=== PATIENT | female | born 1955 | race Caucasian/White ===

== ENCOUNTER 2021-01-25 10:09 | Outpatient (REF) | payer MEDICARE, SELFPAY ==
[2021-01-25 14:17] LABS: Anion Gap 14 (12-20); Blood Urea Nitrogen 8 mg/dL (9-16); Carbon Dioxide 25 mmol/L (22-29); Chloride 105 mmol/L (96-108); Estimated Glomerular Filt Rate > 60; Potassium 4.4 mmol/L (3.3-5.1); Sodium 140 mmol/L (135-145)
== END 2021-01-25 10:10 | disposition home or self-care (01) ==
LOC: HO.10HDL 10:09
PROVIDERS: Visit Provider Family Medicine
DX: I10 Essential (primary) hypertension (principal)
CPT/HCPCS: 36415; 80051; 82565; 84520

== ENCOUNTER 2021-10-12 12:38 | Outpatient (REF) | payer MEDICARE, SELFPAY ==
--- NOTE | ~2021-10-12 | XR_ITS ---
EXAMINATION: XR SHOULDER, RIGHT CLINICAL INFORMATION: Right shoulder pain for 6 months. COMPARISON: None TECHNIQUE: Four views of the right shoulder. FINDINGS: No fracture or dislocation. The joint space at the glenohumeral joint is maintained with small marginal osteophytes. Mild hypertrophic degenerative change of the acromioclavicular joint. Subacromial spurring noted. The visualized lung is clear. The visualized ribs are intact. XR/XR shoulder RT min 2V IMPRESSION: Mild degenerative change throughout the right shoulder. Subacromial spurring can predispose to rotator cuff injury.
== END 2021-10-12 12:39 | disposition home or self-care (01) ==
LOC: HO.XRAY 12:38
PROVIDERS: Visit Provider Family Medicine
DX: M25.511 Pain in right shoulder (principal)
CPT/HCPCS: 73030

== ENCOUNTER 2022-01-16 15:09 | Emergency (ER) | payer MEDICARE, SELFPAY ==
--- NOTE | ~2022-01-16 | CT_ITS ---
EXAMINATION: CT HEAD WITHOUT CONTRAST CLINICAL INFORMATION: Headache. COMPARISON: None TECHNIQUE: Contiguous axial imaging was performed from the skull base to vertex without intravenous administration of contrast. This CT examination was performed using dose optimization techniques as appropriate, variously including the following: *Automated exposure control *Adjustment of mA and/or kV according to patient size (this includes techniques or standardized protocols for targeted exams where dose is matched to indication/reason for exam; i.e. extremities or head) *Use of iterative reconstruction technique DLP: 589 mGy-cm FINDINGS: There is no evidence of acute intracranial hemorrhage or territorial infarction. No abnormal mass effect or midline shift is seen. Da Silva to white matter differentiation is well preserved. No extra-axial fluid collections are identified. The ventricles are normal in size. There is no abnormal attenuation within the brain parenchyma. The osseous structures and soft tissues are normal. There is mild mucoperiosteal thickening of bilateral maxillary sinuses. CT/CT head/brain wo con IMPRESSION: No acute intracranial process seen. Mild bilateral maxillary sinus inflammatory changes
--- NOTE | ~2022-01-16 | MR_ITS ---
MRI OF THE BRAIN WITHOUT IV CONTRAST INDICATION: Rule out posterior infarct. COMPARISON: CT head 01/16/2022. TECHNIQUE: Multiplanar multisequence MR imaging of the brain was obtained without IV contrast. FINDINGS: There is no hydrocephalus, extra-axial surface collection, or herniation. There are mild T2 signal changes within the supratentorial white matter, possibly mild chronic microangiopathy though nonspecific. The major flow voids at the skull base are preserved. There is no acute infarct on diffusion-weighted imaging. There is no intracranial hemorrhage on the gradient recalled echo acquisition. The midline structures are normal. The cerebellar tonsils are normally positioned. The cerebellum and brainstem are normal. The craniocervical junction is normal. Osseous marrow signal intensity is homogenous. The visualized soft tissues are unremarkable. There is mild mucosal thickening within the maxillary sinuses bilaterally. MR/MR head/brain wo con IMPRESSION: - There are no acute intracranial findings. There are no acute infarcts. - There are mild T2 signal changes within the supratentorial white matter, possibly mild chronic microangiopathy though nonspecific.
[2022-01-16 15:23] VITALS: BP 166/84; PULSE 73; RESP 16; TEMP 36.9; O2SAT 96; BMI 28.3
--- NOTE | 2022-01-16 15:32 | ED.DIZZY ---
HPI - Dizziness General Chief Complaint: Dizziness Stated Complaint: DIZZINESS Time Seen by Provider: 01/16/22 15:32 Source: patient Mode of arrival: EMS Limitations: other (Poor historian and vague) History of Present Illness HPI Narrative: This is a 66-year-old female past medical history significant for hypertension, RI (10-15 years ago), coronary artery disease with stent placement, hyperlipidemia, GERD presenting to the emergency department with complaints of sudden onset dizziness described as the room spinning with vision changes. Patient tells me that this occurred at approximately 14:40. She tells me she was driving when this started. She has never had this before. She tells me she did not feel like she was able to ambulate as she felt like she was falling over to the sides, she tells me she was extremely dizzy and felt like she needed to call 911. She has no history of vertigo. She has been eating and drinking well. She tells me that for a moment her eyes/vision became foggy/blurred. She denies any recent head trauma. She denies recent illness, chest pain, shortness of breath, nausea, vomiting, neck pain, numbness, paresthesias, abdominal pain, weakness. At this time patient tells me that her dizziness is still present however not as severe as when it 1st started, she tells me if she closes her eyes she also feels dizzy. She does clarify that this episode came on suddenly, no preceding symptoms. She takes aspirin 81 mg daily. Current daily smoker MD elicited complaint: dizziness, difficulty walking and vertigo Onset (ago): hour(s) (2) Timing: sudden onset Severity: severe Description: room spinning , off-balance and difficulty walking Context: at rest History of similar symptoms: No Exacerbating factors: movement/ambulation Relieving factors: nothing Associated symptoms: denies other symptoms Associated neuro symptoms: vision changes Related Data Home Medications Medication Instructions Recorded Confirmed aspirin 81 mg tablet,delayed 81 mg PO DAILY 01/16/22 01/16/22 release metoprolol succinate 50 mg 1 tab PO DAILY 01/16/22 01/16/22 tablet,extended release 24 hr Previous Rx's Medication Instructions Recorded fluticasone propionate 50 1 spray INTRANASAL BID #16 g 01/16/22 mcg/actuation nasal spray,suspension (Flonase Allergy Relief) meclizine 25 mg tablet 25 mg PO BID PRN #30 tab 01/16/22 Allergies Allergy/AdvReac Type Severity Reaction Status Date / Time Penicillins [PCN] Allergy Unknown RASH Unverified 08/12/20 16:54 penicillin Allergy Unknown skin rash Uncoded 03/13/18 00:00 Review of Systems Review of Systems: Constitutional : No Weight loss, No Fever, No Chills, No Fatigue, No Malaise ENT/Mouth : No sore throat, No Rhinorrhea Eyes: No Eye Pain, No Swelling, No Redness, + vision changes. Cardiovascular : No Chest Pain, No SOB, No Dyspnea on Exertion, No Orthopnea, No Edema, No Palpitations Respiratory : No Cough, No Sputum, No Wheezing Gastrointestinal : No Nausea, No Vomiting, No Diarrhea, No Constipation, No abdominal Pain, No Hematochezia, No Melena Genitourinary : No Dysuria, No Urinary Frequency, No Hematuria, Musculoskeletal : No joint pain, No Myalgias, No Joint Swelling Skin : No Skin Lesions, No rash Neuro : + Weakness, No Numbness, + Dizziness, No Headache Psych : No Anxiety/Panic, No Depression Heme/Lymph: No Bruising, No Bleeding,No Lymphadenopathy All other systems reviewed and are negative Yes all other systems are reviewed and are negative [facility] Past Medical History Attestation statement: The following information was validated with the patient. Source: old records reviewed and nursing notes reviewed Social History Social History Advance Directives: No Advance Directives Information Provided: Yes Physical Exam Vital Signs: Vital Signs: Last Vital Signs Temp 98.4 F 01/16/22 18:00 Pulse 84 01/16/22 18:13 Resp 16 01/16/22 18:00 BP 135/83 01/16/22 18:13 Pulse Ox 96 01/16/22 18:00 BMI result Body Mass Index 28.3 VSS Appearance: Alert.? Oriented X3.? No acute distress.? Head: Normocephalic, atraumatic, no step-offs or deformities Eyes: Pupils equal, round and reactive to light.? + horizontal nystagmus. ENT: Pharynx normal.?Symmetric face, smile, nasolabial folds, forehead wrinkling. Neck: Normal inspection.? Neck supple.? CVS: Normal heart rate and rhythm.? Pulses normal.? Respiratory: No respiratory distress.? Breath sounds normal.? Abdomen: Soft and nontender.? Skin: Skin warm and dry.? Normal skin color.? Normal skin turgor.? Extremities: No lower extremity edema.? No calf ttp. 5/5 strength to bilateral upper and lower extremities Back: No midline tenderness, no C-spine tenderness, full range of motion, no CVA tenderness bilaterally. Neuro: Oriented X 3.? No motor deficit.? No sensory deficit. + abnormal finger to nose on right normal on the left. Normal hand smoking pipe maker. Normal heel to velazquez. + dizziness with ambulation and positional changes. Course Reevaluation(s) Reevaluation #1: Spoke to who emphasizes that this is a high-risk patient, she had an RI at an early age. Based off history and physical exam findings he does advise for an MRI. I told him when his already been ordered as I was concerned for a posterior/cerebellar infarct. He can be reached at [phone] Time: 16:29 Reevaluation #2: CT of head shows bilateral maxillary sinus changes. No acute signs of ICH or CVA. MRI within normal limits. Posterior infarct has been ruled out. This is likely BPPV. Time: 17:10 Reevaluation #3: Spoke to hospitalist to discuss admission at this time both and I agree no need for inpatient admission. Patient can follow up with PCP and neurology SHANTA. Will reach out to PCP and try to personally schedule and APT for patient. Time: 19:23 Additional Reevaluation(s): Spoke to patients PCP who state patient should be seen in the office she should call at 9:30 am for an apt. Spoke to daughter and patient about this. They agree with plan. Patient feeling better. Comfortable with discharge with prompt PCP and neurology follow-up. MDM - Dizziness MDM Narrative Medical decision making narrative: 1545 66 yo f pmhx hld, htn, gerd presents to ED with complaints of sudden onset dizziness and vision changes around 2:40 pm. Never had this happen before. She felt like she was not able to ambulate due to severe dizziness. Patient is very vague, and poor historian. PE- RRR, lungs clear, abdomen soft non tender non distended, abnormal [id number] on the right, normal on the left. Some horizontal nystagmus. Normal hand smoking pipe maker. Face symmetric, fluid speech, 5/5 strength to upper and lower extremities. Patient reports disequilibrium with ambulation, she feels like she is falling over to the sides. Tried the eply maneuver with some improvement however still reprots dizziness and slight vision changes Based off patient history and physical examination I ordered a stat MRI to rule out posterior infarct. Patient does have significant cardiac history and at this time posterior stroke cannot be ruled out. Will also obtain a cardiac workup. Discussed this with Dr. Odom who agrees with stat MRI. Plan- labs, imaging, ekg Medical Records Attestation: I reviewed the patient's medical records. Lab Data Attestation: I reviewed the patient's lab results. Result diagrams: 01/16/22 16:51 01/16/22 16:51 Labs: Lab Results 01/16/22 01/16/22 01/16/22 Range/Units 16:51 16:51 16:51 WBC 7.5 (4.8-10.8) X10*3/uL RBC 5.18 (4.20-5.50) X10*6/uL Hgb 14.1 (12.0-16.0) g/dl Hct 43.4 (37.0-47.0) % MCV 83.8 (80.0-98.0) fL MCH 27.2 (27.0-33.0) pg MCHC 32.5 (31.0-35.0) g/dl RDW 13.8 (11.0-16.0) % Plt Count 237 (160-400) X10*3/uL MPV 9.5 (9.4-12.3) fL Immature Gran % (Auto) 0.4 (0.0-0.4) % Neut % (Auto) 60.1 (45-73) % Lymph % (Auto) 29.0 (20-40) % [place] % (Auto) 8.8 (2-11) % Eos % (Auto) 1.2 (0-4) % Baso % (Auto) 0.5 (0-2) % Lymph # (Auto) 2.2 (1.2-4.9) X10*3/uL [place] # (Auto) 0.7 (0.1-1.2) X10*3/uL Eos # (Auto) 0.1 (0.0-0.4) X10*3/uL Baso # (Auto) 0.0 (0.0-0.2) X10*3/uL Abs Immat Gran (auto) 0.03 (0.00-0.03) X10*3/uL Absolute Neuts (auto) 4.5 (2.0-8.3) x10*3/uL Absolute Nucleated RBC 0.000 (0.0-0.012) X10*3/uL Nucleated RBC % (auto) 0.0 (0.0-0.2) /100WBC Sodium 140 (135-145) mmol/L Potassium 4.1 (3.3-5.1) mmol/L Chloride 107 (96-108) mmol/L Carbon Dioxide 23 (22-29) mmol/L Anion Gap 14 (12-20) BUN 9 (9-16) mg/dL Creatinine 0.79 (0.5-1.4) mg/dL Estim Creat Clear Calc 65.0 Estimated GFR > 60 Random Glucose 94 (60-115) mg/dL Calcium 9.6 (8.4-10.2) mg/dL Magnesium 2.0 (1.6-2.6) mg/dL Total Bilirubin 0.4 (0.0-1.0) mg/dL AST 17 (5-31) U/L ALT 15 (0-31) U/L Alkaline Phosphatase 70 (39-117) U/L Troponin I High Sens (<3.5-17.0) ng/L Total Protein 7.2 (6.5-8.0) g/dL Albumin 4.2 (3.5-5.0) g/dL COVID-19 (RUBEN) Negative (Negative) COVID-19 Clin Com See Note 01/16/22 Range/Units 16:51 WBC (4.8-10.8) X10*3/uL RBC (4.20-5.50) X10*6/uL Hgb (12.0-16.0) g/dl Hct (37.0-47.0) % MCV (80.0-98.0) fL MCH (27.0-33.0) pg MCHC (31.0-35.0) g/dl RDW (11.0-16.0) % Plt Count (160-400) X10*3/uL MPV (9.4-12.3) fL Immature Gran % (Auto) (0.0-0.4) % Neut % (Auto) (45-73) % Lymph % (Auto) (20-40) % [place] % (Auto) (2-11) % Eos % (Auto) (0-4) % Baso % (Auto) (0-2) % Lymph # (Auto) (1.2-4.9) X10*3/uL [place] # (Auto) (0.1-1.2) X10*3/uL Eos # (Auto) (0.0-0.4) X10*3/uL Baso # (Auto) (0.0-0.2) X10*3/uL Abs Immat Gran (auto) (0.00-0.03) X10*3/uL Absolute Neuts (auto) (2.0-8.3) x10*3/uL Absolute Nucleated RBC (0.0-0.012) X10*3/uL Nucleated RBC % (auto) (0.0-0.2) /100WBC Sodium (135-145) mmol/L Potassium (3.3-5.1) mmol/L Chloride (96-108) mmol/L Carbon Dioxide (22-29) mmol/L Anion Gap (12-20) BUN (9-16) mg/dL Creatinine (0.5-1.4) mg/dL Estim Creat Clear Calc Estimated GFR Random Glucose (60-115) mg/dL Calcium (8.4-10.2) mg/dL Magnesium (1.6-2.6) mg/dL Total Bilirubin (0.0-1.0) mg/dL AST (5-31) U/L ALT (0-31) U/L Alkaline Phosphatase (39-117) U/L Troponin I High Sens < 3.5 (<3.5-17.0) ng/L Total Protein (6.5-8.0) g/dL Albumin (3.5-5.0) g/dL COVID-19 (RUBEN) (Negative) COVID-19 Clin Com Critical Care Time Critical Care Time Critical Care Time: Yes Total Critical Care Time: 45 Attestation: Obtaining history, physical exam reviewing labs, imaging speaking to patient's family, speaking to patient's primary care provider obtaining previous records, speaking to my attending. Discharge Plan Discharge Clinical Impression: Benign paroxysmal positional vertigo Patient Disposition: Home, Self-Care Instructions: Vertigo (ED), Vertigo (DC), Benign Paroxysmal Positional Vertigo (ED) Additional Instructions: Take your medications as prescribed. If you were prescribed antibiotics today, it is important that you take your medication to their entirety, do not skip any doses, do not finish them early. Follow-up with your primary care provider this week. Return to the emergency department with new or worsening symptoms. Such as chest pain, shortness of breath, dizziness, vision changes, weakness, lethargy, changes in speech. In case of emergency call 911 Call your primary care provider office tomorrow at 09:30 in the morning this is when the phone lines open up, they are expecting you to call to make an appointment. Prescriptions: New meclizine 25 mg tablet 25 mg PO BID PRN (Reason: dizziness) Qty: 30 0RF fluticasone propionate [Flonase Allergy Relief] 50 mcg/actuation spray,suspension 1 spray intranasal BID Qty: 16 0RF Rx Instructions: administer into each nostril No Action metoprolol succinate 50 mg tablet extended release 24 hr 1 tab PO DAILY 0RF aspirin [Aspir-81] 81 mg Tablet,Delayed Release (Dr/Ec) 81 mg PO DAILY 0RF Referrals: Leandro De Leon MD [Physician] - 2 days Reggie Burns MD [Primary Care Provider] - 2 days Stand Alone Forms: Work/School Release
--- NOTE | 2022-01-16 15:35 | ECG_ITS ---
Test Reason : DIZZINESS Blood Pressure : / mmHG Vent. Rate : 062 BPM Atrial Rate : 062 BPM P-R Int : 164 ms QRS Dur : 068 ms QT Int : 390 ms P-R-T Axes : 028 -07 -04 degrees QTc Int : 395 ms Normal sinus rhythm Inferior infarct , age undetermined ST & T wave abnormality, consider anterolateral ischemia Abnormal ECG When compared with ECG of 30-JUL-2007 09:59, Criteria for Anterior infarct are no longer Present Criteria for Anterolateral infarct are no longer Present Inferior infarct is now Present T wave inversion now evident in Inferior leads Referred By: Ginger Garcia Electronically Signed By:LAVELLE CASAREZ
[2022-01-16 16:58] LABS: MANUAL DIFF FLAG NO
[2022-01-16 17:00] LABS: Basophils Percent Auto 0.5 % (0-2); Eosinophils Absolute Auto 0.1 X10*3/uL (0.0-0.4); Eosinophils Percent Auto 1.2 % (0-4); Hematocrit 43.4 % (37.0-47.0); Hemoglobin 14.1 g/dl (12.0-16.0); Imm Gran Abs Auto 0.03 X10*3/uL (0.00-0.03); Imm Gran Pct Auto 0.4 % (0.0-0.4); Lymphocytes Absolute Auto 2.2 X10*3/uL (1.2-4.9); Mean Corpuscular HGB Conc 32.5 g/dl (31.0-35.0); Mean Corpuscular Hemoglobin 27.2 pg (27.0-33.0); Mean Corpuscular Volume 83.8 fL (80.0-98.0); Mean Platelet Volume 9.5 fL (9.4-12.3); Monocytes Absolute Auto 0.7 X10*3/uL (0.1-1.2); Monocytes Percent Auto 8.8 % (2-11); Neutrophils Absolute Auto 4.5 x10*3/uL (2.0-8.3); Neutrophils Percent Auto 60.1 % (45-73); Platelet Count 237 X10*3/uL (160-400); Red Blood Count 5.18 X10*6/uL (4.20-5.50); Red Cell Distribution Width 13.8 % (11.0-16.0); White Blood Count 7.5 X10*3/uL (4.8-10.8)
[2022-01-16 17:14] LABS: COVID-19 Test Negative (Negative)
[2022-01-16 17:15] LABS: Alanine Aminotransferase 15 U/L (0-31); Albumin Level 4.2 g/dL (3.5-5.0); Alkaline Phosphatase 70 U/L (39-117); Anion Gap 14 (12-20); Aspartate Amino Transferase 17 U/L (5-31); Bilirubin Total 0.4 mg/dL (0.0-1.0); Blood Urea Nitrogen 9 mg/dL (9-16); Calcium 9.6 mg/dL (8.4-10.2); Carbon Dioxide 23 mmol/L (22-29); Chloride 107 mmol/L (96-108); Estimated Glomerular Filt Rate > 60; Glucose Random 94 mg/dL (60-115); Potassium 4.1 mmol/L (3.3-5.1); Sodium 140 mmol/L (135-145); Total Protein 7.2 g/dL (6.5-8.0)
[2022-01-16 17:19] LABS: Troponin-I High Sensitivity < 3.5 ng/L (<3.5-17.0)
[2022-01-16 18:00] VITALS: BP 168/74; PULSE 77; RESP 16; TEMP 36.9; O2SAT 96
[2022-01-16 18:11] VITALS: BP 138/71; PULSE 63
[2022-01-16 18:12] VITALS: BP 130/83; PULSE 67
[2022-01-16 18:13] VITALS: BP 135/83; PULSE 84
[2022-01-16] MEDS: diazePAM 5 MG TABLET 2.5 MG PO (18:17)
[2022-01-16] MEDS: Meclizine HCl 25 MG TABLET PO (18:17)
--- NOTE | 2022-01-16 19:49 | PC.NURSE ---
Assisting primary RN- pt discharged per ED team, okay not to give IV fluids per Radha VALDEZ. PIV removed, dc instructions and return precautions given, Rx reviewed. Questions asked and answered, ambulatory w/ steady gait out of dept
== END 2022-01-16 19:51 | disposition home or self-care (01) ==
PROVIDERS: Physician Assistant; Emergency Provider Emergency Medicine; PCP Family Medicine
DX: H81.13 Benign paroxysmal vertigo, bilateral (principal); R26.2 Difficulty in walking, not elsewhere classified; Z79.899 Other long term (current) drug therapy; Z20.822 Contact with and (suspected) exposure to COVID-19
CPT/HCPCS: 36415; 70450; 70551; 80053; 83735; 84484; 85025; 87635; 93005; 96360; 99284; 99291

== ENCOUNTER 2022-03-16 09:48 | Outpatient (REF) | payer MEDICARE, SELFPAY ==
[2022-03-16 10:41] LABS: Anion Gap 11 (12-20); Blood Urea Nitrogen 10 mg/dL (9-16); Carbon Dioxide 26 mmol/L (22-29); Chloride 106 mmol/L (96-108); Estimated Glomerular Filt Rate > 60; Potassium 4.6 mmol/L (3.3-5.1); Sodium 138 mmol/L (135-145)
== END 2022-03-16 09:49 | disposition home or self-care (01) ==
LOC: HO.LAB 09:48
PROVIDERS: PCP Family Medicine; Visit Provider Family Medicine
DX: I10 Essential (primary) hypertension (principal)
CPT/HCPCS: 36415; 80051; 82565; 84520

== ENCOUNTER 2023-03-19 12:45 | Outpatient (REF) | payer MEDICARE, SELFPAY ==
[2023-03-19 15:09] LABS: Alanine Aminotransferase 12 U/L (0-31); Anion Gap 13 (12-20); Aspartate Amino Transferase 17 U/L (5-31); Blood Urea Nitrogen 11 mg/dL (9-16); Carbon Dioxide 26 mmol/L (22-29); Chloride 105 mmol/L (96-108); Estimated Glomerular Filt Rate > 60; Potassium 4.3 mmol/L (3.3-5.1); Sodium 140 mmol/L (135-145)
== END 2023-03-19 12:46 | disposition home or self-care (01) ==
LOC: HO.10HDL 12:45
PROVIDERS: Visit Provider Family Medicine
DX: E78.00 Pure hypercholesterolemia, unspecified (principal); Z79.899 Other long term (current) drug therapy
CPT/HCPCS: 36415; 80051; 82550; 82565; 84450; 84460; 84520

== ENCOUNTER 2024-04-15 08:18 | Outpatient (REF) | payer MEDICARE, SELFPAY ==
[2024-04-15 09:43] LABS: Anion Gap 13 (12-20); Blood Urea Nitrogen 8 mg/dL (9-16); Carbon Dioxide 26 mmol/L (22-29); Chloride 106 mmol/L (96-108); Estimated Glomerular Filt Rate > 60; Potassium 4.1 mmol/L (3.3-5.1); Sodium 141 mmol/L (135-145)
== END 2024-04-15 08:19 | disposition home or self-care (01) ==
LOC: HO.LAB 08:18
PROVIDERS: PCP Family Medicine; Visit Provider Family Medicine
DX: I10 Essential (primary) hypertension (principal)
CPT/HCPCS: 36415; 80051; 82565; 84520

== ENCOUNTER 2024-05-05 11:12 | Outpatient (AMB) | payer MEDICARE, SELFPAY ==
[2024-05-05 11:13] VITALS: BP 156/81; PULSE 82; BMI 28.0
--- NOTE | 2024-05-05 11:13 | MHC.OFFVIS ---
Vital Signs 05/05/24 11:13 Height 5 ft 3 in Weight 158 lb BMI 28.0 BP 156/81 H Blood Pressure Location Rt brachial Position Sitting Pulse 82 Intake Visit Reasons: Lesion on nose Intake Note: Patient scheduled today's appointment. Concerned with non healing lesion on nose. Present for 2-3 yrs. Patient c/o: inflamed, irritated, red, oozing. No hx of skin ca. 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 He has had this several years time. Over the last several months and is increasing in size become more symptomatic. She would like to have removed. She has no such lesions elsewhere. Chart was reviewed and patient evaluated. Patient is status post coronary stent 2006. [facility] Medical History (Updated 05/05/24 @ 11:23 by APOORVA Bran) Hard of hearing Hypertension Surgical History (Updated 05/05/24 @ 11:30 by Alex Hood MD) Hx of surgical procedure Social History (Updated 05/05/24 @ 11:24 by APOORVA Bran) Tobacco use type: Cigarette Cigarettes Per Day: 5 Physical Exam Vital Signs: Last Vital Signs Pulse 82 05/05/24 11:13 BP 156/81 H 05/05/24 11:13 BMI result Body Mass Index 28.0 HEENT Other: Patient is a proximally 1.5 x 1 cm exophytic growth involving the right mid nose area. No evidence of any cervical , periclavicular, or axillary adenopathy bilaterally. Chest Other: Chest breath sounds bilaterally, HS 1 in 2 GI Other: Abdomen mildly corpulent, soft, benign Assessment & Plan Assessment & Plan (1) Mass of nose: Code(s): J34.89 - Other specified disorders of nose and nasal sinuses Category: Surgical Plan Risks, benefits, alternatives of wide local excision of right nose lesion reviewed the patient and included but not limited to bleeding, infection, recurrence, numbness, pain, scarring, wound dehiscence, possible need for skin grafting and the patient wishes to proceed. All questions answered Coding Level of Care Code New Pt Level 5 (14613) Diagnoses Mass of nose J34.89
== END 2024-05-05 11:29 | disposition home or self-care (01) ==
PROVIDERS: PCP Family Medicine; Visit Provider Surgery
DX: J34.89 Other specified disorders of nose and nasal sinuses (principal)
CPT/HCPCS: 99204

== ENCOUNTER → 2024-05-05 11:12 | Outpatient (BNVA) | payer MEDICARE, SELFPAY | PROVIDERS: PCP Family Medicine; Visit Provider Surgery | DX: J34.89 Other specified disorders of nose and nasal sinuses (principal) | CPT/HCPCS: 99202 ==

== ENCOUNTER 2024-05-08 13:19 | Outpatient (AMB) | payer MEDICARE, SELFPAY ==
--- NOTE | 2024-05-08 13:23 | MHC.OFFVIS ---
Vital Signs 05/08/24 13:24 Height 5 ft 3 in Weight 154 lb 5.177 oz BMI 27.3 BP 130/80 Blood Pressure Location Lt brachial Position Sitting Pulse 77 Intake Visit Reasons: Preop/ Erwin/ hx NE/stent 2007 Intake Note: Pre-op Dr Hood hx NE stent in 2007 Coverage Specialist Rn Required: No Allergies Penicillins [PCN] Allergy (Unknown, Unverified 05/05/24 11:21) RASH penicillin Allergy (Unknown, Uncoded 05/05/24 11:21) skin rash Medication List - Last Reconciled 05/08/24 by Ysuef Black MD ascorbic acid (vitamin C) mg PO aspirin 81 mg PO DAILY cyanocobalamin (vitamin B-12) 1,000 mcg PO DAILY methocarbamol 750 mg PO TID PRN metoprolol succinate ER 50 mg PO DAILY omeprazole 20 mg PO DAILY HPI Comments Details: Thank you for referring Noemi in cardiology consultation today for preoperative cardiovascular risk stratification management of coronary artery disease. 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 She says she has no obvious cardiac symptoms. In 2006 she had symptoms of retrosternal not in her chest for which she then presented emergency room was noted to have inferior STEMI and underwent emergent cardiac catheterization and had 100% proximal RCA lesion underwent bare metal stent placement at that point time. 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 She has been manage with aspirin and metoprolol. She has currently not on statin therapy as she says she had developed significant muscle aches and disability related to multiple different statins including atorvastatin, rosuvastatin simvastatin. Patient has had no recent lipid panel performed. She denies any symptoms of chest discomfort. Denies any shortness of breath, orthopnea, PND, leg edema. No prolonged palpitations, lightheadedness, syncope. She is scheduled to undergo surgery on the nose under general anesthesia as per her. This is scheduled in near future. She has no obvious other cardiac symptoms. [facility] Medical History Hard of hearing Hypertension Surgical History History of heart artery stent Hx of surgical procedure Family History Father Cancer Mother No problems noted. Sister CAD (coronary artery disease) Social History Tobacco use type: Cigarette Cigarettes Per Day: 5 Review of Systems Const Denies chills, Denies daytime sleepiness, Denies fatigue, Denies fever(s), Denies frequent falls, Denies poor appetite, Denies snoring, Denies stops breathing during sleep, Denies weakness, Denies weight gain and Denies weight loss Eyes Denies loss of vision ENT Denies dizziness and Denies hearing loss Card Denies chest pain, Denies claudication, Denies leg edema, Denies lightheadedness, Denies palpitations, Denies dyspnea, Denies dyspnea on exertion and Denies orthopnea Resp Denies cough, Denies excessive phlegm production, Denies dyspnea, Denies dyspnea on exertion, Denies snoring and Denies wheezing GI Denies abdominal pain, Denies hematochezia, Denies change in bowel habits, Denies nausea and Denies vomiting Denies urinary frequency and Denies dysuria Musc Denies arthralgias, Denies muscle weakness, Denies numbness and Denies other (frequent falls) Skin/Breast Denies nail changes and Denies rash Neuro Denies Abnormal speech present, Denies dizziness, Denies frequent falls, Denies loss of vision, Denies memory loss, Denies numbness and Denies weakness Psych Denies depression and Denies memory loss Endo Denies fatigue and Denies palpitations Can/Lymph Reports easy bruising and Reports other (anemia) Aller/Immun Denies wheezing Physical Exam Vital Signs: Last Vital Signs Pulse 77 05/08/24 13:24 BP 130/80 05/08/24 13:24 BMI result Body Mass Index 27.3 Const General: cooperative, comfortable, no acute distress, alert, awake and Physically active Nutritional Appearance: overweight Orientation/consciousness: patient oriented x3 Limitations: no limitations HEENT Head: Yes normocephalic and Yes atraumatic Neck Neck: Yes trachea midline, Yes supple and Yes no JVD Resp Effort & Inspection: normal respiratory effort Auscultation: clear to auscultation bilaterally Cardio Jugular venous distension: no JVD Palpation: normal PMI Rate: regular rate Rhythm: regular rhythm Heart sounds: S1 normal heart sound present, S2 normal heart sound present, no click, no gallops, no murmurs and no rubs Bruits: no carotid bruits GI Auscultation: normal bowel sounds Skin General skin exam: no rashes or lesions noted Neuro General: patient oriented x3 and no focal motor deficits Speech: No Abnormal speech present Extrem General: Yes no clubbing, cyanosis or edema Psych Appearance: grossly normal Office Procedures EKG Details: EKG shows normal sinus rhythm with T-wave inversion in the anterolateral lead which could represent ischemia [id number], Complete Assessment & Plan Assessment & Plan (1) Preoperative cardiovascular examination: Code(s): Z01.810 - Encounter for preprocedural cardiovascular examination Category: Medical Plan: Preoperative cardiovascular risk stratification this elderly lady to undergo surgery under general anesthesia with abnormal EKG with prior and remote coronary artery disease and stenting. IVC not having any symptoms although I think further risk stratification should be pursued with exercise myocardial perfusion imaging. This will be done in near future. Also suggest an echocardiogram to evaluate LV systolic and diastolic function. If these tests are within acceptable limits, she will be low risk for perioperative cardiovascular morbidity mortality. (2) CAD (coronary artery disease): Code(s): I25.10 - Atherosclerotic heart disease of [place] coronary artery without angina pectoris Category: Medical Plan: CAD with remote stenting of the RCA for inferior STEMI. She unfortunately continues to smoke. Strongly suggest to quit smoking. Continue low-dose aspirin therapy. Blood pressure is currently well optimized on metoprolol therapy. Continue the same. She requires aggressive lipid modification this was discussed with her. She has not had any lipid panel in near future. Alternatives to statin therapy were discussed including PCSK9 inhibitor therapy. Advised to obtain a lipid panel in near future. Cardiovascular workup as above. Will follow up in the clinic in 1 year's time, sooner p.r.n.. Thank you for allowing me to partake in her care Orders: Orders NM cardiolite stress test 2 Weeks R07.9 - Chest pain, unspecified, Z01.810 - Encounter for preprocedural cardiovascular examination CA stress test Today Z01.810 - Encounter for preprocedural cardiovascular examination Lipid Panel Today I25.10 - Atherosclerotic heart disease of [place] coronary artery without angina pectoris CA echo transthoracic complete Today I25.10 - Atherosclerotic heart disease of [place] coronary artery without angina pectoris Coding Level of Care Code New Pt Level 4 (05426) Diagnoses Preoperative cardiovascular examination Z01.810 CAD (coronary artery disease) I25.10 CPT Codes EKG - CPT: [id number], Complete ([id number])
[2024-05-08 13:24] VITALS: BP 130/80; PULSE 77; BMI 27.3
== END 2024-05-08 13:57 | disposition home or self-care (01) ==
PROVIDERS: PCP Family Medicine; Visit Provider Internal Medicine Cardiovascular Disease
DX: Z01.810 Encounter for preprocedural cardiovascular examination (principal); I25.10 Atherosclerotic heart disease of native coronary artery without angina pectoris
CPT/HCPCS: 93010; 99204

== ENCOUNTER → 2024-05-08 13:19 | Outpatient (BNVA) | payer MEDICARE, SELFPAY | PROVIDERS: PCP Family Medicine; Visit Provider Internal Medicine Cardiovascular Disease | DX: Z01.810 Encounter for preprocedural cardiovascular examination (principal); I25.10 Atherosclerotic heart disease of native coronary artery without angina pectoris | CPT/HCPCS: 93005; 99202 ==

== ENCOUNTER → 2024-05-15 07:37 | Outpatient (REF) | payer MEDICARE, SELFPAY ==
--- NOTE | ~2024-05-15 | NM_ITS ---
Exercise Myocardial perfusion study Indication: Chest pain to evaluate for myocardial ischemia Technique: The patient was brought in for an exercise perfusion study on 05/15/2024. Patient performed exercise as per Telly protocol and was injected 25 mCi of sestamibi was given intravenously one target HR was achieved. Images were obtained using the SPECT gamma camera interlaced with the gating device. Images were obtained in supine position. Resting perfusion study was performed on 05/19/2024. Patient was administered 25 mCi of sestamibi intravenously at rest. Images were then obtained in supine position. Images obtained with and without CT attenuation. Total DLP 129 mGy-cm. Images were processed with the software and compared side to side in short axis, horizontal long axis and vertical long axis views. Findings: The stress perfusion study showed non attenuated images show some thinning of the distal anterior and lateral wall of the LV myocardium. Overall otherwise normal myocardial uptake. Attenuation corrected images show normal uptake of tracer in all segments of LV myocardium. The gated study shows normal LV systolic function with calculated LVEF of 57%. LV cavity is normal in size. The gated study shows normal systolic wall thickening and contraction of all segments. There is no transient ischemic dilation. Resting study shows intense subdiaphragmatic uptake interfering with basal inferior and inferolateral segment of LV myocardium. Non attenuated images show overall no changes in perfusion pattern compared to stress perfusion study. Attenuated corrected images are suboptimal. Gating at rest reveals normal systolic wall motion with ejection fraction at 52%. The findings are consistent with normal myocardial perfusion. NM/NM cardiolite stress test Impression: 1. Normal myocardial perfusion 2. Gated LVEF is 57% 3. Transient ischemic dilatation not present Stress EKG is negative for ischemia
--- NOTE | 2024-05-15 07:42 | CA_ITS ---
Acquisition Time: 2024-05-15 08:54:15 Total Exercise Time: 00:06:00 Test Indications: chest pain Medications: see med sheet Protocol: TYRELL Max HR: 127 BPM 85% of Pred: 149 BPM Max BP: 158/084 mmHG Max Work Load: 7.0 METS Exercise stress test with exercise 6 min of Tyrell protocol, achieving 85% MPHR, with mild sob and fatigue, no chest discomfort, without arrythmia, with normotensive response to exercise, without EKG changes meeting criteria for ischemia. Nuclear images pending. Test reviewed with Dr Bryant Referred By: Yusef Black Overread By: LUIZ VASQUEZ
--- NOTE | 2024-05-15 07:42 | CA_ITS ---
Transthoracic Echocardiogram Patient (Last, First, Middle): Noemi Crawford, Gender: Female Date of : 1955 Age: 69 Procedure Date: 05/15/2024 Procedure Type: Transthoracic Echocardiogram Location: OP Height: 160.02 cm Weight: 69.85 kg BSA: 1.73 m2 Heart Rate: 51 bpm BP: 130 / 80 mmHg Prenatal Teacher: SB Referring MD: Yusef Black MD Bobbin Stripper: Yusef Black MD Symptoms: I25.10 - Atherosclerotic heart disease of [place] coronary artery without... Study Quality: Adequate ECG Rhythm: Bradycardia Conclusions: - Essentially normal study Findings Left Ventricle Normal left ventricular cavity size. There is normal left ventricular wall thickness. The left ventricular systolic function is hyperdynamic. The visually estimated ejection fraction is >70%. Spectral Doppler is indicative of a normal filling pattern. Right Ventricle Normal right ventricular cavity size and systolic function. Atria Both atria are normal in size. There is no evidence of interatrial shunt. Aortic Valve Normal aortic valve structure and function. There is no aortic valve stenosis. There is no aortic valve regurgitation. Mitral Valve Normal mitral valve structure and function. There is no mitral valve regurgitation. There is no mitral valve stenosis. Pulmonic Valve The pulmonic valve is likely normal. There is trace pulmonic valve regurgitation. Tricuspid Valve Likely normal tricuspid valve structure and function. Tricuspid regurgitation envelope is inadequate for calculation of right ventricular systolic pressure. Normal right atrial pressure. Great Vessels All visible segments of the aorta are normal in size. The pulmonary artery was not well visualized. Venous The inferior vena cava is normal in size and collapses greater than 50% with inspiration. Pericardium/Pleural There is no evidence of pericardial effusion. Prior Study Comparison No prior study available for comparison. Measurements 2D Linear Measurements IVSd: 0.83 0.6-0.9/0.6-1.0 cm LVIDd: 4.38 3.9-5.3/4.2-5.9 cm LVIDd Index: 2.53 2.4-3.2/2.2-3.1 cm/m2 LVIDs: 2.82 2.0-3.6 cm LVPWd: 0.76 0.7-1.1 cm LA Diam: 3.50 2.7-3.8/3.0-4.0 cm LAIDs Index: 2.02 1.5-2.3 cm/m2 LV Mass: 133.57 67-162/88-224 g LV Mass Index: 77.21 43-95/49-115 g/m2 LVOT Diam: 2.10 3.0+(-)1.3 cm 2D Systolic Function EF 4C: 72.00 >55% EF 2C: 74.00 >55% EF BiP: 73.00 >55% Mitral Valve MV Pk E: 0.75 MV PK A: 0.61 MV Decel Time: 192.00 E/A: 1.20 E'Lateral: 8.38 E'Medial: 5.98 E/E' Med: 12.60 E/E' Lat: 9.00 PHT: 56.00 MVA PHT: 3.93 Decel Robeson: 3.92 Aortic Valve AoV Pk Sg: 1.15 AoV Pk Grad: 5.00 RUTH: 2.18 LVOT LVOT Pk Sg: 0.73 LVOT Mn Sg: 0.52 LVOT VTI: 0.20 LVOT Pk Grad: 2.00 LVOT Mn Grad: 1.00 LVOT Diam: 2.10 LVOT Area: 3.46 Diastolic Function MV Pk E: 0.75 MV Pk A: 0.61 E/A: 1.20 E'Medial: 5.98 E/E' Med: 12.60 E' Laterial: 8.38 E/E' Lat: 9.00 Right Ventricle TAPSE (mm): 20.90 TVS' Sg: 11.20 Tricuspid Valve RA Press: 3.00 Great Vessels Aorta Sinus of Valsalva: 3.00 2.0-3.5 cm Ao Asc: 3.30 2.1-3.4 cm Pulmonary Veins Pulm Vein S/D 1.00 Pulmonary Valve PV Pk Sg: 0.83 Peak PV Grad: 3.00 Updated in Other Vendor System with Status of Final Yusef Black MD electronically signed on 05/15/2024 3:16:19 PM with status of Final
== END ==
LOC: HO.CARD 07:37
PROVIDERS: PCP Family Medicine; Visit Provider Internal Medicine Cardiovascular Disease
DX: Z01.810 Encounter for preprocedural cardiovascular examination (principal); R07.9 Chest pain, unspecified; I25.10 Atherosclerotic heart disease of native coronary artery without angina pectoris
CPT/HCPCS: 78452; 93017; 93306; A9500

== ENCOUNTER → 2024-05-15 07:42 | Outpatient (BNV) | payer MEDICARE, SELFPAY | PROVIDERS: PCP Family Medicine; Visit Provider Internal Medicine Cardiovascular Disease | DX: R07.9 Chest pain, unspecified (principal) | CPT/HCPCS: 78452; 93016; 93018; 93320; 93325; 93350 ==

== ENCOUNTER → 2024-07-30 12:58 | Outpatient (BNVA) | payer OTHER, SELFPAY | PROVIDERS: PCP Family Medicine; Visit Provider Physician Assistant Medical | DX: Z09 Encounter for follow-up examination after completed treatment for conditions other than malignant neoplasm (principal); S61.412A Laceration without foreign body of left hand, initial encounter; S61.512A Laceration without foreign body of left wrist, initial encounter; S51.812A Laceration without foreign body of left forearm, initial encounter; W24.0XXA Contact with lifting devices, not elsewhere classified, initial encounter | CPT/HCPCS: 73200; 99204 ==

== ENCOUNTER → 2024-08-01 10:23 | Outpatient (BNVA) | payer OTHER, SELFPAY | PROVIDERS: PCP Family Medicine; Visit Provider Physician Assistant | DX: S63.501A Unspecified sprain of right wrist, initial encounter (principal); S60.211A Contusion of right wrist, initial encounter; W24.0XXA Contact with lifting devices, not elsewhere classified, initial encounter | CPT/HCPCS: 99214 ==

== ENCOUNTER → 2024-08-04 14:39 | Outpatient (BNVA) | payer OTHER, SELFPAY | PROVIDERS: PCP Family Medicine; Visit Provider Physician Assistant Medical | DX: Z48.02 Encounter for removal of sutures (principal); S61.412A Laceration without foreign body of left hand, initial encounter; S61.512A Laceration without foreign body of left wrist, initial encounter; S51.812A Laceration without foreign body of left forearm, initial encounter; W24.0XXA Contact with lifting devices, not elsewhere classified, initial encounter; T81.30XA Disruption of wound, unspecified, initial encounter | CPT/HCPCS: 97597; 99212; 99215 ==

== ENCOUNTER → 2024-08-11 09:39 | Outpatient (BNVA) | payer OTHER, SELFPAY | PROVIDERS: PCP Family Medicine; Visit Provider Physician Assistant Medical | DX: S61.412A Laceration without foreign body of left hand, initial encounter (principal); S61.512A Laceration without foreign body of left wrist, initial encounter; S63.052A Subluxation of other carpometacarpal joint of left hand, initial encounter; L03.114 Cellulitis of left upper limb; W24.0XXA Contact with lifting devices, not elsewhere classified, initial encounter | CPT/HCPCS: 97597; 87070; 87077; 87186; 87205; 97598; 99214 ==

== ENCOUNTER → 2024-08-14 09:25 | Outpatient (BNVA) | payer OTHER, SELFPAY | PROVIDERS: PCP Family Medicine; Visit Provider Physician Assistant Medical | DX: S67.42XA Crushing injury of left wrist and hand, initial encounter (principal); W24.0XXA Contact with lifting devices, not elsewhere classified, initial encounter | CPT/HCPCS: 99213 ==

== ENCOUNTER → 2024-08-18 13:30 | Outpatient (BNVA) | payer OTHER, SELFPAY | PROVIDERS: PCP Family Medicine; Visit Provider Physician Assistant Medical | DX: S67.42XA Crushing injury of left wrist and hand, initial encounter (principal); W24.0XXA Contact with lifting devices, not elsewhere classified, initial encounter | CPT/HCPCS: 29125; 99213 ==

== ENCOUNTER 2024-08-20 08:10 | Outpatient (RCR) | payer OTHER, SELFPAY | END 2024-10-03 15:01 | disposition home or self-care (01) | LOC: HO.WCC 08:10 | PROVIDERS: PCP Family Medicine; Visit Provider Surgery | DX: S61.412D Laceration without foreign body of left hand, subsequent encounter (principal); G62.9 Polyneuropathy, unspecified; F17.210 Nicotine dependence, cigarettes, uncomplicated | CPT/HCPCS: 99211 ==

== ENCOUNTER 2024-08-20 09:24 | Outpatient (REF) | payer OTHER, SELFPAY ==
--- NOTE | ~2024-08-20 | XR_ITS ---
EXAMINATION: XR WRIST, LEFT CLINICAL INFORMATION: M25.532 - Pain in left wrist COMPARISON: None available. TECHNIQUE: PA, lateral, oblique, and scaphoid views of the left wrist. FINDINGS: There is diffuse osteopenia. There is no fracture, dislocation, or suspicious bone lesion. There is widening of the scapholunate interval up to 5 mm suspicious for scapholunate ligament tear. No slack change. Degenerative spurring of the radial carpal joint. Mild osteoarthritis in the first CMC and STT joints, and radiocarpal joint. Carpal bones are intact, and otherwise normally aligned. Mild dorsal soft tissue swelling noted. XR/XR wrist LT w scaphoid IMPRESSION: 1. No acute bony findings. Findings suspicious for scapholunate ligament tear. 2. Mild changes of osteoarthritis. 3. Osteopenia. 4. Dorsal soft tissue swelling. Electronically signed by: Stanton García MD 10/27/2024 11:43 AM [facility]
== END 2024-08-20 09:25 | disposition home or self-care (01) ==
LOC: HO.HOSX 09:24
DX: M25.532 Pain in left wrist (principal); M25.632 Stiffness of left wrist, not elsewhere classified
CPT/HCPCS: 73110; 99202

== ENCOUNTER → 2024-08-20 09:28 | Outpatient (BNV) | payer OTHER, SELFPAY | PROVIDERS: Visit Provider Radiology Diagnostic Radiology | DX: M19.032 Primary osteoarthritis, left wrist (principal) | CPT/HCPCS: 73110 ==

== ENCOUNTER 2024-08-20 12:40 | Outpatient (AMB) | payer OTHER, SELFPAY ==
--- NOTE | 2024-08-20 12:59 | A.OFFVIS_ITS ---
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 Patient was referred to us through [email or web address]. Patient was closing her van, her hand was in some kind of machine for the lift holding a buckle for the wheel chairs attached to her van, her hand caught between bars and was squished. She was unable to pull her hand out so she had to lower the lift. The result of her hand getting stuck was ripping her skin from her hand. She expresses she had intermittent shooting pain w/ certain movements but assumes its from healing. She says she is currently not taking any medication for pain. She presents today with a thumb spica splint provided by [employer]. She has swelling in her left wrist and some bruising. She was seen in [facility] where they stitched up her wound. Her job recommended her going to [facility]. 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 The patient reports that she did have a significant skin tear associated with this injury, and that this was repaired at a previous evaluation. Today, the patient reports that she only experiences pain with the end of flexion of the right wrist. Patient reports that she is also experiencing some edema on the dorsal aspect of the left wrist, but this is improved since date of injury. Patient reports that both x-rays and CT scans have been taken, although she is unsure what the results were. Patient denies any numbness or tingling in the left upper extremity No other acute complaints or concerns at this time [facility] Medical History (Updated 08/20/24 @ 14:11 by FEI Santizo) Myocardial infarction Arthritis Habitual snoring On beta jennifer at home GERD (gastroesophageal reflux disease) Neuropathy Current every day smoker Hard of hearing Hypertension Surgical History (Updated 05/15/24 @ 12:04 by Roxana Kramer RN) History of 2 sections H/O colonoscopy History of heart artery stent Hx of surgical procedure Family History Father Cancer Mother No problems noted. 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 Neuro: Normal sensation of the tips of all digits of the [] hand at this time Vascular: Cap refill brisk Pain: Patient reports no tenderness to palpation of the anatomical snuffbox, left radial styloid, left ulnar styloid, scaphoid tubercle, scapholunate interval, or elsewhere in the left wrist ROM: Patient is able to flex the right wrist to approximately 45 degrees before experiencing pain, and experiences significant discomfort when flexing beyond this. No mechanical obstruction noted with passive flexion, only pain Patient is able to extend the left wrist fully without difficulty Skin: There is noted to be a well-healing skin tear on the dorsal aspect of the left hand and wrist. No evidence of infection General: No ecchymosis, erythema, or evidence of infection. Psych: Appears grossly normal Affect normal Attitude cooperative Results Reviewed Results Reviewed: X-rays obtained in the office today and independently reviewed by , Reggie Dumont PA-C, demonstrate widening of the scapholunate interval, measured at approximately 4 mm. No fracture or acute bony abnormality noted Assessment & Plan Assessment & Plan (1) Stiffness of left wrist joint: Code(s): M25.632 - Stiffness of left wrist, not elsewhere classified Category: Medical (2) Scapholunate dissociation of left wrist: Code(s): M25.332 - Other instability, left wrist Category: Medical Plan 1. Pain of left wrist Date of injury 07/31/2024 At this time, patient is educated that there does not appear to be any acute fra cture or bony abnormality in her left wrist Patient is relieved by this Patient is referred to occupational hand therapy for range of motion, strengthening, stabilization of the left wrist to help with the stiffness she is experiencing Patient is also provided with a Velcro wrist splint to be worn while working Patient is cleared to return to work on a limited basis, and is advised to avoid any heavy lifting in her left hand for a further 4 weeks Patient is amenable to this plan 2. Scapholunate dissociation of left wrist Patient is educated about this condition Patient is educated that due to the fact she is asymptomatic, there is no acute intervention indicated Patient is informed that this has likely caused some arthritis in radial scaphoid joint, and that this could require injections down the road if she experiences discomfort Patient is amenable to this plan Patient will follow-up as needed with any acute concerns Patient will follow-up as needed with any acute concerns Orders: Orders XR wrist LT w scaphoid Today M25.532 - Pain in left wrist OT Evaluation and Treatment Today M25.632 - Stiffness of left wrist, not elsewhere classified Coding Level of Care Code New Pt Level 3 (22190) Diagnoses Stiffness of left wrist joint M25.632 Scapholunate dissociation of left wrist M25.332
[2024-08-20 13:00] VITALS: BMI 27.1
== END 2024-08-20 13:55 | disposition home or self-care (01) ==
PROVIDERS: PCP Family Medicine
DX: M25.632 Stiffness of left wrist, not elsewhere classified (principal); M25.332 Other instability, left wrist; Z04.2 Encounter for examination and observation following work accident
CPT/HCPCS: 99203

== ENCOUNTER 2024-10-29 10:42 | Outpatient (AMB) | payer OTHER, SELFPAY ==
--- NOTE | 2024-10-29 10:48 | MHC.OFFVIS ---
Intake Visit Reasons: OV-Stiffness of left wrist joint Intake Note: Noemi is a 69 year old right hand dominant female who presents today for a follow up of her left wrist. Pt states she didn't do OT. Pt states she is starting to experience pain in her palm and her thumb. Allergies Penicillins [PCN] Allergy (Unknown, Unverified 10/29/24 10:48) RASH atorvastatin [From Lipitor] Allergy (Verified 10/29/24 10:48) Muscle Pain Uwaeujq-OVG-QuT Reductase Inhibitor Allergy (Verified 10/29/24 10:48) Muscle Pain cephalexin Adverse Reaction (Severe, Verified 10/29/24 10:48) Vomiting Cephalosporins Adverse Reaction (Severe, Verified 10/29/24 10:48) Vomiting penicillin Allergy (Unknown, Uncoded 10/29/24 10:48) skin rash HPI HPI OV-Stiffness of left wrist joint: Details: Patient is a 69-year-old female who presents for follow-up evaluation of stiffness and discomfort in the left wrist from a crush injury, date of injury 07/29/2024. At this time, patient states that she did not go to occupational therapy, as she did not feel that she needed it, but she now feels that occupational therapy would be helpful for her, as she is noticing increasing pain and decreasing range of motion in her wrist. Patient reports no new injury that started this pain. Patient denies any numbness or tingling in the left hand. No other acute complaints or concerns at this time [facility] Medical History (Updated 08/20/24 @ 14:11 by FEI Santizo) Myocardial infarction Arthritis Habitual snoring On beta jennifer at home GERD (gastroesophageal reflux disease) Neuropathy Current every day smoker Hard of hearing Hypertension Surgical History (Updated 05/15/24 @ 12:04 by Roxana Kramer RN) History of 2 sections H/O colonoscopy History of heart artery stent Hx of surgical procedure Family History Father Cancer Mother No problems noted. 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 Neuro: Normal sensation of the tips of all digits of the [] hand at this time Vascular: Cap refill brisk Pain: Patient reports no tenderness to palpation of the anatomical snuffbox, left radial styloid, left ulnar styloid, scaphoid tubercle, scapholunate interval, or elsewhere in the left wrist ROM: Patient is able to flex the right wrist to approximately 60 degrees before experiencing pain, and experiences minimal discomfort when doing this. No mechanical obstruction noted with passive flexion, only pain Patient is able to extend the left wrist fully without difficulty Skin: There is noted to be a well-healed skin tear on the dorsal aspect of the left hand and wrist. No evidence of infection General: No ecchymosis, erythema, or evidence of infection. Psych: Appears grossly normal Affect normal Attitude cooperative Assessment & Plan Assessment & Plan (1) Scapholunate dissociation of left wrist: Code(s): M25.332 - Other instability, left wrist Category: Medical (2) Stiffness of left wrist joint: Code(s): M25.632 - Stiffness of left wrist, not elsewhere classified Category: Medical Plan 1. 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 Patient is educated about this condition Patient is educated about the typical recovery course At this time, patient was offered several different treatment options, namely occupational therapy and steroid injections Patient would like to proceed with occupational therapy and symptomatic bracing OT is ordered for range of motion and strengthening of the left wrist Patient was amenable to this plan Patient will follow-up as needed with any acute concerns Orders: Orders OT Evaluation and Treatment Today M25.332 - Other instability, left wrist, M25.632 - Stiffness of left wrist, not elsewhere classified Coding Level of Care Code Est Pt Level 3 (21135) Diagnoses Scapholunate dissociation of left wrist M25.332 Stiffness of left wrist joint M25.632
--- OUTSIDE RECORDS SUMMARY | 2024-11-04 17:45 | XMS_ITS | Patient Health Record ---
Author Organization [facility] Address [address] [place] [address] Care Team Providers Care Director Of Education Name Role Phone Grant PEREZ, Reggie Primary Care Provider UnavailJaya Christianson [phone] REASON FOR REFERRAL No Information MEDICATIONS Medication SIG (Take, Route, Fr equency, Duration) Notes Start Date End Date Status Omeprazole 20 MG TAKE 1 CAPSULE BY MO UTH EVERY MORNING for 30 Active SOCIAL HISTORY Sex Assigned At : Social History Observation Description Sex Assigned At Unknown PLAN OF TREATMENT No Information Insurance Providers Payer Name Payer Address Payer Phone Subscriber Number Group Number Insured Name Patient Relationship to Insured Coverage Start Date Coverage End Date [facility] [address] [place] [address] [id number] RHONDA MOORE Self - patient is the insured
== END 2024-10-29 11:57 | disposition home or self-care (01) ==
PROVIDERS: PCP Family Medicine
DX: M25.332 Other instability, left wrist (principal); M25.632 Stiffness of left wrist, not elsewhere classified
CPT/HCPCS: 99213

== ENCOUNTER → 2024-10-29 10:42 | Outpatient (BNVA) | payer OTHER, SELFPAY | PROVIDERS: PCP Family Medicine | DX: M25.632 Stiffness of left wrist, not elsewhere classified (principal); M25.332 Other instability, left wrist | CPT/HCPCS: 99212 ==

== ENCOUNTER 2024-12-31 10:23 | Outpatient (RCR) | payer OTHER, BC, SELFPAY ==
--- NOTE | 2024-11-24 08:04 | MHC.OT.EP ---
[address] [phone] Occupational Therapy Plan of Care Patient Name: Noemi Crawford Date of Evaluation: 11/18/24 Diagnosis: Pain Location: Pain Score: 4 Pain Scale Used: Numeric (0 - 10) Aggravating Factors: Alleviating Factors: Assessment: Pt is a 69 yr old R hand dominant female who injured her L wrist on 07/29 when she crushed her hand/wrist while transferring a pt in a wheelchair into her van and using the lift. She reports going to the ED to have wounds on the dorsal side of her hand and wrist addressed as well as X-rays (which were negative for fractures). She reports she is concerned with wrist ROM (flexion and rotation), as well as the weakness of her hand. She had a follow up w/ orthopedics and was referred to skilled OT therapy for increased ROM, strength, and functional use of her L hand. 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 Thank you once again for your referral.
== END 2024-12-31 10:51 | disposition home or self-care (01) ==
LOC: HO.OT 10:23
PROVIDERS: PCP Family Medicine
DX: M25.332 Other instability, left wrist (principal); M25.632 Stiffness of left wrist, not elsewhere classified
CPT/HCPCS: 97110; 97140; 97165

== ENCOUNTER 2025-04-21 09:56 | Outpatient (REF) | payer BC, SELFPAY ==
--- OUTSIDE RECORDS SUMMARY | 2025-04-21 10:36 | XMS_ITS | Patient Health Record ---
Author Organization [facility] Address [address] [place] [address] Care Team Providers Care Alligator Shear Operator Name Role Phone Grant PEREZ, Reggie Primary Care Provider UnavailJaya Christianson [phone] Reason For Referral No Information Medications Medication SIG (Take, Route, Fr equency, Duration) Notes Start Date End Date Status Omeprazole 20 MG TAKE 1 CAPSULE BY MO UTH EVERY MORNING for 30 Active Plan Of Treatment No Information Insurance Providers Payer Name Payer Address Payer Phone Subscriber Number Group Number Insured Name Patient Relationship to Insured Coverage Start Date Coverage End Date [facility] [address] [place] [address] [phone] [id number] RHONDA MOORE Self - patient is the insured
[2025-04-21 11:14] LABS: Anion Gap 13 (12-20); Blood Urea Nitrogen 11 mg/dL (9-16); Carbon Dioxide 24 mmol/L (22-29); Chloride 107 mmol/L (96-108); Estimated Glomerular Filt Rate > 60; Potassium 4.3 mmol/L (3.3-5.1); Sodium 140 mmol/L (135-145)
== END 2025-04-21 09:57 | disposition home or self-care (01) ==
LOC: HO.LAB 09:56
PROVIDERS: PCP Family Medicine; Visit Provider Family Medicine
DX: I10 Essential (primary) hypertension (principal)
CPT/HCPCS: 36415; 80051; 82565; 84520

== ENCOUNTER 2025-08-07 10:56 | Outpatient (AMB) | payer BC, SELFPAY ==
--- NOTE | 2025-08-07 10:59 | A.OFFPC_ITS ---
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 Required: No Accompanied by: Spouse Allergies Penicillins (PCN) Allergy (Unknown, Unverified 08/07/25 10:59) RASH atorvastatin (From Lipitor) Allergy (Verified 08/07/25 10:59) Muscle Pain Fywaldh-VJE-RnH Reductase Inhibitor Allergy (Verified 08/07/25 10:59) Muscle Pain cephalexin Adverse Reaction (Severe, Verified 08/07/25 10:59) Vomiting Cephalosporins Adverse Reaction (Severe, Verified 08/07/25 10:59) Vomiting penicillin Allergy (Unknown, Uncoded 08/07/25 10:59) skin rash Medication List - Last Reconciled 08/07/25 by FEI Stiles aspirin 81 mg PO DAILY B complex-vitamin C-folic acid 1 mg 1 tab PO DAILY bismuth tribrom-petrolatum,wh 2 X 2 (Xeroform Petrolatum Dressing) As directed magnesium oxide 500 mg PO DAILY methocarbamol 750 mg PO TID PRN metoprolol succinate ER 50 mg PO DAILY omeprazole 20 mg PO QPM Tobacco use date assessed: 08/07/25 Fall risk assessment: No Falls in past year Last assessed Fall Risk: 08/07/25 Dental Screening Dental Screen Date: 08/07/25 Did you have a dental visit in the last 12 months?: No Did you have a dental problem in the last 6 months where you did not have access to dental care?: No Was dental information given to patient?: No HPI HPI Comments History of Present Illness Details 70-year-old female with history of GERD, hypertension, hypercholesterolemia, colon polyp, peripheral neuropathy, coronary artery disease who is a current everyday smoker presenting to the office today to establish care and for management of chronic conditions. CAD/HTN/HLD-s/p PCI of the proximal RCA with bare metal stent in 2006 for inferior wall STEMI. On baby aspirin, metoprolol. Not on statin. No recent lipids. She was seen by Cardiology for preoperative clearance. Underwent Cardiolite stress test without evidence of ischemia. She was advised to follow- up in 1 year with Cardiology but did not. Reports she does not feel that she needed to. Apparently, surgery was canceled and she states she no longer trusted the provider. She also states that she feels good and is not concerned. We did discuss the importance of preventative medicine, that while she may feel good, there may be underlying pathology that could ultimately result in serious event. She does acknowledge understanding after multiple discussions. Nicotine dependence- smokes 1/2 ppd, only half a cigarette . She is not interested in lung cancer screening as she states that she feels well. We did again discuss the importance of surveillance and preventative medicine. She states she does not care if she ends up with lung cancer. GERD-omeprazole Concerns: None Health maintenance: Mammogram-declines Bone density-declines Colonoscopy-declines ROS: General: No fevers, malaise, unintentional weight loss HEENT: No blurred vision, diplopia. No sore throat, nasal congestion, rhinorrhea, sinus pain, ear pain Cardiovascular: No chest pain, palpitations, or leg edema Respiratory: No shortness of breath, wheezing, cough GI: No abdominal pain, nausea, vomiting, diarrhea, constipation, melena, hematochezia : No dysuria, hematuria, increased urinary frequency, decreased urinary output MSK: No myalgia, back pain Neuro: No headaches, weakness, paresthesias Skin: No rashes or lesions EXAM: Constitutional - Awake and Alert, No apparent distress Eyes - PERRL Cardiovascular - S1S2, RRR, No edema Respiratory - Normal lung expansion, Normal respiratory effort, No respiratory distress, CTA bilaterally Extremities - no calf tenderness bilaterally, no swelling Skin - Warm/Dry Neurological - Alert & oriented x3 Psychological - Appropriate affect PFSH Medical History Myocardial infarction Arthritis Habitual snoring On beta jennifer at home GERD (gastroesophageal reflux disease) Neuropathy Current every day smoker Hard of hearing Hypertension Surgical History History of 2 sections H/O colonoscopy History of heart artery stent Hx of surgical procedure Family History Father Cancer Mother No problems noted. 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 Cognitive needs: No Hearing needs: Yes (Bilateral ) Vision needs: Yes (Rx glasses) Physical exam (Primary Care) Vital Signs: Last Vital Signs Temp 98.6 F 08/07/25 11:13 Pulse 78 08/07/25 11:13 BP 128/84 08/07/25 11:13 Pulse Ox 97 08/07/25 11:13 Oxygen Delivery Method Room Air 08/07/25 11:13 BMI result Body Mass Index 30.2 Tobacco/Smoking Status: Tobacco use Status Tobacco use date assessed 08/07/25 08/07/25 11:15 Patient Tobacco Use Status Current everyday Tobacco 08/07/25 10:59 Tobacco use type Cigarette 08/07/25 10:59 e-Cigarette/Vaping Use Never Used 08/07/25 11:15 Coding Level of Care Code New Pt Level 4 (84271) Complex EM visit Add On G2211 Diagnoses Hypertension I10 CAD (coronary artery disease) I25.10 Hyperlipemia E78.5 Assessment & Plan Assessment & Plan (1) Hypertension: Code(s): I10 - Essential (primary) hypertension Category: Medical Plan: Controlled. Continue metoprolol (2) CAD (coronary artery disease): Code(s): I25.10 - Atherosclerotic heart disease of [place] coronary artery without angina pectoris Category: Medical Plan: Stable, no anginal chest pain. Given history of STEMI and coronary artery disease, she is recommended to continue following as advised by Cardiology. We discussed the importance of surveillance and preventative medicine and she was educated several times on this. She continues to decline and states she feels fine. Continue baby aspirin and Toprol (3) Hyperlipemia: Code(s): E78.5 - Hyperlipidemia, unspecified Category: Medical Plan: Lipid panel ordered. Discussed that it is recommended that she initiate a chol esterol-lowering medication as this was also recommended by prior PCP and Cardiology. Continue diet low in saturated fats and highly processed foods Plan Follow-up in the office in 4 months with labs completed following visit today Orders: Orders Basic Metabolic Panel Today E78.5 - Hyperlipidemia, unspecified, I10 - Essential (primary) hypertension, I25.10 - Atherosclerotic heart disease of [place] coronary artery without angina pectoris Hemoglobin A1c Today E78.5 - Hyperlipidemia, unspecified, I10 - Essential (primary) hypertension, I25.10 - Atherosclerotic heart disease of [place] coronary artery without angina pectoris Complete Blood Count Auto Diff Today E78.5 - Hyperlipidemia, unspecified, I10 - Essential (primary) hypertension, I25.10 - Atherosclerotic heart disease of [place] coronary artery without angina pectoris Lipid Panel Today E78.5 - Hyperlipidemia, unspecified, I10 - Essential (primary) hypertension, I25.10 - Atherosclerotic heart disease of [place] coronary artery without angina pectoris Liver Panel Today E78.5 - Hyperlipidemia, unspecified, I10 - Essential (primary) hypertension, I25.10 - Atherosclerotic heart disease of [place] coronary artery without angina pectoris
[2025-08-07 11:13] VITALS: BP 128/84; PULSE 78; TEMP 37; O2SAT 97; BMI 30.2
--- OUTSIDE RECORDS SUMMARY | 2025-08-07 12:36 | XMS_ITS | Patient Health Record ---
Author Organization [facility] Address [address] [place] [address] Care Team Providers Care Manual Writer Name Role Phone Grant (RETIRED) Reggie PEREZ Primary Care Provider Unavailable Jaya Costello Unavailable [phone] Reason For Referral No Information Medications Medication SIG (Take, Route, Fr equency, Duration) Notes Start Date End Date Status Omeprazole 20 MG TAKE 1 CAPSULE BY MO UTH EVERY MORNING for 30 Active Plan Of Treatment No Information Insurance Providers Payer Name Payer Address Payer Phone Subscriber Number Group Number Insured Name Patient Relationship to Insured Coverage Start Date Coverage End Date [facility] [address] [place] [address] [id number] RHONDA MOORE Self - patient is the insured
--- OUTSIDE RECORDS SUMMARY | 2025-08-07 12:36 | XMS_ITS | Clinical Summary ---
Author Organization [facility] Address [address] [place] [address] Phone Care Team Providers Care Jacquard Loom Fixer Name Role Phone Reggie Burns MD Primary Care Provider Allergies Active Allergy Reactions Criticality Noted Date Comments Cephalexin 07/29/2024 Cephalosporins 07/29/2024 Atorvastatin 06/04/2024 Can not lift arms Other 07/29/2024 Betalactams Penicillin 06/04/2024 Gtdyspf-Fwq-Cby Reductase Inhibitors 07/29/2024 Medications omeprazole (PRILOSEC) 20 MG capsule TAKE 1 CAPSULE BY MOUTH EVERY MORNING for 30 Active metoprolol succinate (TOPROL-XL) 50 MG 24 hr tablet Take 1 tablet by mouth every morning. Active aspirin 81 MG EC tablet Take 81 mg by mouth daily. Active methocarbamoL (ROBAXIN) 750 MG tablet Take 750 mg by mouth 4 (four) times a day. Active b complex vitamins capsule Take 1 capsule by mouth daily. Active folic acid (FOLVITE) 1 MG tablet Take 1 mg by mouth daily. Active potassium bicarbonate (K-LYTE) 25 MEQ disintegrating tablet Take 25 mEq by mouth 2 (two) times a day. Active oxyCODONE-acetamino phen (PERCOCET) 5-325 mg per tablet Take 1-2 tablets by mouth every 6 (six) hours as needed for pain (specific location in comments). Partial fill ok 4 tablet Active Active Problems Problem Noted Date Diagnosed Date Basal cell carcinoma (BCC) of right side of nose 07/29/2024 Immunizations Immunization Administration Dates Next Due Tdap 07/29/2024 Family History Medical History Relation Comments Cancer Father Heart disease Father Cancer Mother Relation Status Comments Father Mother Social History Tobacco Use Types Packs/Day Years Used Date Smoking Tobacco: Every Day Cigarettes Smokeless Tobacco: Never Tobacco Cessation:Ready to Q uit: Not Asked; Counseling Given: Not Answered Alcohol Use Standard Drinks/Week Comments Never 0 (1 standard drink = 0.6 oz pur e alcohol) no Education Answer Date Recorded Are you interested in more education? Not on kris e 05/22/2024 Are you concerned about learning? Not on file 05/22/2024 No 05/22/2024 No 05/22/2024 Digital Access Answer Date Recorded No 05/22/2024 No 05/22/2024 Reliable internet access at home? Not on file 05/22/2024 Device with a working camera? Not on file Intimate Partner Violence Answer Date R ecorded Are you denied basic needs s uch as food, clothing, or medical care? No 07/29/2024 In the past 12 months have y ou been in a relationship with a person who hurts, threatens, or tries to control you? No 07/29/2024 Are you denied basic needs s uch as food, clothing, or medical care? No 07/29/2024 In the past 12 months have y ou been in a relationship with a person who hurts, threatens, or tries to control you? No 07/29/2024 Comments No Sex and Gender Information Value Date Recorded Sex Assigned at Female 07/29/2024 3:49 PM EDT Legal Sex Female 9:18 AM EDT Gender Identity Female 07/29/2024 3:49 PM EDT Sexual Orientation Not on file Last Filed Vital Signs Vital Sign Reading Time Taken Comments Blood Pressure 127/69 08/05/2024 1:58 PM EDT Pulse 82 08/05/2024 1:58 PM EDT Temperature 36.2 C (97.2 F) 08/05/2024 1:58 PM EDT Respiratory Rate 14 08/05/2024 1:58 PM EDT Oxygen Saturation 97% 08/05/2024 1:58 PM EDT Inhaled Oxygen Concentration - - Weight 67.1 kg (148 lb) 08/05/2024 8:40 AM EDT Height 157.5 cm (5' 2 ) 08/05/2024 8:40 AM EDT Body Mass Index 27.07 08/05/2024 8:40 AM EDT Plan of Treatment Health Maintenance Due Date Last Done Comments LIPID PANEL 1953 POTASSIUM LEVEL 1953 DEPRESSION SCREENING 1965 SMOKING Hx and SMOKELESS TOBACCO SCREENING 1966 HEPATITIS C SCREENING 1971 PNEUMOCOCCAL VACCINES (50+ years) (1 of 2 - PCV) 02/14/1972 MAMMOGRAM 1993 COLOGUARD 1998 COLONOSCOPY 1998 COLORECTAL CANCER SCREENING 1998 FIT TEST 1998 FOBT 1998 SIGMOIDOSCOPY 1998 VIRTUAL COLONOSCOPY 1998 ZOSTER VACCINES (1 of 2) 2003 OSTEOPOROSIS SCREENING INITI AL (ONE-TIME) 2018 INFLUENZA VACCINE (#1) 2025 COVID-19 VACCINE (4 - 2024-2 6 season) 2025 10/08/2021, 01/07/2021, 12/17/2020 RSV VACCINE (1 - 1-dose 75+ series) 02/14/2028 Adult Td,Tdap Booster 07/29/2034 07/29/2024 HEPATITIS A VACCINES Aged Out No long er eligible based on patient's age to complete this topic HIB VACCINES Aged Out No longer eligi ble based on patient's age to complete this topic MENINGOCOCCAL VACCINES (ACWY) Aged Out No longer eligible based on patient's age to complete this topic MENINGOCOCCAL VACCINES (B) Aged Out N o longer eligible based on patient's age to complete this topic Medical Devices Implanted Type Area Acetone Recovery Worker Device Identifier Shelf Expiration Date Model / Serial / Lot Stent Implanted:Qty: 1 Stent Heart Insurance BL[place]IC[place] BLUE REPLACEMENT AIM INSURANCE Advance Directives For more information, please contact: [phone] (9AM - 5PM [facility], Sunday-Sunday) * Full Code (Latest Code Status on File) Date Activated Date Inactivated Comments 08/05/2024 8:32 AM Question Answer Comments Code Status Confirmed With: Other (specify below ) Code Discussion Comments: periop Care Teams Jacquard Loom Fixer Relationship Specialty Start Date End Date Reggie Burns MD [address] [place] [address] [place] [address] PCP - General 05/22/24 Additional Source Comments The information contained in this document represents components of the legal health record. It is not the complete legal health record.[facility]
--- OUTSIDE RECORDS SUMMARY | 2025-08-07 12:36 | XMS_ITS | Encounter Summary ---
Author Organization [facility] Address [address] [place] [phone] Phone Care Team Providers Care Laser Specialist Name Role Phone Reggie Burns MD Primary Care Provider [phone] Encounter Details Date Type Department Care Team (Late st Contact Info) Description 08/05/2024 Procedure Pass OR Admitting Dept - Virtual Department [address] [place] [address] Social History Tobacco Use Types Packs/Day Years Used Date Smoking Tobacco: Every Day Cigarettes Smokeless Tobacco: Never Alcohol Use Standard Drinks/Week Comments Never 0 [...] PM EDT Sexual Orientation Not on file documented as of this encounter Plan of Treatment Not on file documented as of this encounter Visit Diagnoses Not on filedocumented in this encounter Care Teams Laser Specialist Relationship Specialty Start Date End Date Reggie Burns MD [address] [place] [address] [place] [address] PCP - General 05/22/24 documented as of this encounter Additional Source Comments The information contained in this document represents components of the legal health record. It is not the complete legal health record.[facility]
== END 2025-08-07 11:59 | disposition home or self-care (01) ==
LOC: HO.HMCHD 10:57
PROVIDERS: PCP Family Medicine; Visit Provider Physician Assistant
DX: I10 Essential (primary) hypertension (principal); I25.10 Atherosclerotic heart disease of native coronary artery without angina pectoris; E78.5 Hyperlipidemia, unspecified

== ENCOUNTER 2025-08-07 12:06 | Outpatient (REF) | payer BC, SELFPAY ==
[2025-08-07 13:25] LABS: MANUAL DIFF FLAG NO
[2025-08-07 13:37] LABS: Hematocrit 41.6 % (37.0-47.0); Hemoglobin 13.9 g/dl (12.0-16.0); Imm Gran Abs Auto 0.02 X10*3/uL (0.00-0.03); Imm Gran Pct Auto 0.3 % (0.0-0.4); Lymphocytes Absolute Auto 3.0 X10*3/uL (1.2-4.9); Mean Corpuscular HGB Conc 33.4 g/dl (31.0-35.0); Mean Corpuscular Hemoglobin 27.9 pg (27.0-33.0); Mean Corpuscular Volume 83.5 fL (80.0-98.0); NRBC Abs Auto 0.000 X10*3/uL (0.0-0.012); NRBC Pct Auto 0.0 /100WBC (0.0-0.2); Platelet Count 223 X10*3/uL (160-400); Red Blood Count 4.98 X10*6/uL (4.20-5.50); White Blood Count 7.7 X10*3/uL (4.8-10.8)
[2025-08-07 13:48] LABS: Hemoglobin A1C 138.7780 umol/L; Total Hemoglobin (HGBA1C) 3645.1261 umol/L
[2025-08-07 14:18] LABS: Alanine Aminotransferase 43 U/L (0-31); Albumin Level 4.5 g/dL (3.5-5.0); Alkaline Phosphatase 67 U/L (39-117); Anion Gap 13 (12-20); Aspartate Amino Transferase 56 U/L (5-31); Blood Urea Nitrogen 13 mg/dL (9-16); Calcium 9.5 mg/dL (8.4-10.2); Carbon Dioxide 24 mmol/L (22-29); Chloride 108 mmol/L (96-108); Cholesterol 329 mg/dL (<200); Estimated Glomerular Filt Rate > 60; HDL Cholesterol 57 mg/dL (>40); Potassium 4.3 mmol/L (3.3-5.1); Sodium 141 mmol/L (135-145); Total Protein 7.6 g/dL (6.5-8.0); Triglycerides 364 mg/dL (<150)
== END 2025-08-07 12:07 | disposition home or self-care (01) ==
LOC: HO.10HDL 12:06
PROVIDERS: Visit Provider Physician Assistant
DX: I25.10 Atherosclerotic heart disease of native coronary artery without angina pectoris (principal); E78.5 Hyperlipidemia, unspecified; I10 Essential (primary) hypertension; Z13.1 Encounter for screening for diabetes mellitus
CPT/HCPCS: 36415; 80048; 80061; 80076; 83036; 85025

== ENCOUNTER 2025-09-28 09:33 | Outpatient (AMB) | payer BC, SELFPAY ==
--- NOTE | 2025-09-28 09:37 | A.OFFVIS_ITS ---
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: No Allergies Penicillins (PCN) Allergy (Unknown, Unverified 08/07/25 10:59) RASH atorvastatin (From Lipitor) Allergy (Verified 08/07/25 10:59) Muscle Pain Nzcjswi-KKX-MyL Reductase Inhibitor Allergy (Verified 08/07/25 10:59) Muscle Pain cephalexin Adverse Reaction (Severe, Verified 08/07/25 10:59) Vomiting Cephalosporins Adverse Reaction (Severe, Verified 08/07/25 10:59) Vomiting penicillin Allergy (Unknown, Uncoded 08/07/25 10:59) skin rash Medication List - Last Reconciled 09/28/25 by Yusef Black MD aspirin 81 mg PO DAILY B complex-vitamin C-folic acid 1 mg 1 tab PO DAILY bismuth tribrom-petrolatum,wh 2 X 2 (Xeroform Petrolatum Dressing) As directed evolocumab (Repatha SureClick) 140 mg subcut Q2W magnesium oxide 500 mg PO DAILY methocarbamol 750 mg PO TID PRN metoprolol succinate ER 50 mg PO DAILY omeprazole 20 mg PO QPM HPI Comments Details: Noemi comes for annual follow-up after a longer gap. She was recently started on Repatha therapy after much convincing by you and with LDL cholesterol of 200 with prior inferior STEMI. She has taken 3 dose and is tolerating it well. She has not significant site reactions. She complains if this is related to Repatha therapy. She denies any clear exertional chest pain/jaw pain which was her PA symptom with exertion. She is very active and says goes for walks and does exertional work related stuff for no symptoms. Denies any prolonged palpitation irregular heartbeat. Takes all her medications. Blood pressures been generally stable. No heart failure symptoms. [facility] Medical History Myocardial infarction Arthritis Habitual snoring On beta jennifer at home GERD (gastroesophageal reflux disease) Neuropathy Current every day smoker Hard of hearing Hypertension Surgical History History of 2 sections H/O colonoscopy History of heart artery stent Hx of surgical procedure Family History Father Cancer Mother No problems noted. Sister CAD (coronary artery disease) Social History Housing: Apartment Are you a primary professional healthcare representative to a significant other at home: No Do you presently have visiting nurse or other home services: No Patient Tobacco Use Status: Current everyday Tobacco user Tobacco use type: Cigarette Cigarettes Per Day: 5 e-Cigarette/Vaping Use: Never Used service: No Current occupational status: employed Current occupation: right handed / [employer] Cognitive needs: No Hearing needs: Yes (Bilateral ) Vision needs: Yes (Rx glasses) Review of Systems Const Denies chills, Denies fatigue, Denies fever(s), Denies frequent falls, Denies weakness, Denies weight gain and Denies weight loss ENT Denies dizziness Card Denies chest pain, Denies leg edema, Denies lightheadedness, Denies palpitations, Denies dyspnea, Denies dyspnea on exertion, Denies orthopnea and Denies other (loss of consciousness) Resp Denies cough, Denies dyspnea and Denies dyspnea on exertion GI Denies hematochezia and Denies change in stool character Musc Denies abnormal gait, Denies muscle weakness, Denies numbness, Denies radiating pain into limb and Denies tingling Neuro Denies Abnormal speech present, Denies abnormal gait, Denies dizziness, Denies frequent falls, Denies numbness, Denies tingling and Denies weakness Endo Denies fatigue and Denies palpitations Physical Exam Vital Signs: Last Vital Signs Pulse 68 09/28/25 09:47 BP 118/74 09/28/25 09:47 BMI result Body Mass Index 29.8 Const General: cooperative, comfortable, no acute distress, alert, awake and Physically active Nutritional Appearance: overweight Orientation/consciousness: patient oriented x3 Limitations: no limitations HEENT Head: Yes normocephalic and Yes atraumatic Neck Neck: Yes trachea midline, Yes supple and Yes no JVD Resp Effort & Inspection: normal respiratory effort Auscultation: clear to auscultation bilaterally Cardio Jugular venous distension: no JVD Palpation: normal PMI Rate: regular rate Rhythm: regular rhythm Heart sounds: S1 normal heart sound present, S2 normal heart sound present, no click, no gallops, no murmurs and no rubs Bruits: no carotid bruits GI Auscultation: normal bowel sounds Skin General skin exam: no rashes or lesions noted Neuro General: patient oriented x3 and no focal motor deficits Speech: No Abnormal speech present Extrem Other: Patient is alert, oriented, and in no acute distress. Neuro: Normal sensation of the tips of all digits of the [] hand at this time Vascular: Cap refill brisk Pain: Patient reports no tenderness to palpation of the anatomical snuffbox, left radi al styloid, left ulnar styloid, scaphoid tubercle, scapholunate interval, or elsewhere in the left wrist ROM: Patient is able to flex the right wrist to approximately 60 degrees before experiencing pain, and experiences minimal discomfort when doing this. No mechanical obstruction noted with passive flexion, only pain Patient is able to extend the left wrist fully without difficulty Skin: There is noted to be a well-healed skin tear on the dorsal aspect of the left hand and wrist. No evidence of infection General: No ecchymosis, erythema, or evidence of infection. Psych: Appears grossly normal Affect normal Attitude cooperative General: Yes no clubbing, cyanosis or edema Psych Appearance: grossly normal Office Procedures EKG Details: EKGs shows normal sinus rhythm with poor R-wave progression with small QRS vo ltage with no acute ST-T wave changes [id number], Complete Assessment & Plan Assessment & Plan (1) CAD (coronary artery disease): Code(s): I25.10 - Atherosclerotic heart disease of [place] coronary artery without angina pectoris Category: Medical Plan: Coronary artery disease with prior acute coronary syndrome with inferior STEMI few years ago. Patient has had no recurrent symptoms currently which are concerning for recurrent disease although she is markedly elevated LDL most likely suggestive of heterozygous familial hypercholesterolemia. She has been intolerant to statins in the past and currently was started on Repatha which is extremely appropriate. I have advised her to complete 6 injections and follow- up LDL which will most likely be significantly reduced. This was discussed with her. Continue lifelong aspirin therapy. Continue high-intensity statin therapy. Advised to continue maintain activity level as tolerated and participate in regular physical activity and aerobic exercise. Complete smoking cessation was advised. Advised to call me with any new symptoms. (2) Hypertension: Code(s): I10 - Essential (primary) hypertension Category: Medical Plan: Hypertension which is currently well optimized on current metoprolol dose. Continue the same. Importance of good blood pressure control was discussed. Target goal blood pressure less than 130/84. Advise low-salt diet. Advised stress mitigation strategies. Advised to maintain a log at home. Will follow up in the clinic in 1 year's time, sooner PRN. Thank you for allowing me to partake in her care Plan 1. 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 Patient is educated about this condition Patient is educated about the typical recovery course At this time, patient was offered several different treatment options, namely occupational therapy and steroid injections Patient would like to proceed with occupational therapy and symptomatic bracing OT is ordered for range of motion and strengthening of the left wrist Patient was amenable to this plan Patient will follow-up as needed with any acute concerns Orders: Orders Lipid Panel 6 Weeks I25.10 - Atherosclerotic heart disease of [place] coronary artery without angina pectoris Coding Level of Care Code Est Pt Level 4 (64098) Complex EM visit Add On G2211 Diagnoses CAD (coronary artery disease) I25.10 Hypertension I10 CPT Codes EKG - CPT: 41568-[id number], Complete ([id number])
[2025-09-28 09:47] VITALS: BP 118/74; PULSE 68; BMI 29.8
--- OUTSIDE RECORDS SUMMARY | 2025-09-28 10:55 | XMS_ITS | Encounter Summary ---
Author Organization [facility] Address [address] [place] [id number] Phone Care Team Providers Care Jump Roll Operator Name Role Phone Reggie Burns MD Primary Care Provider [phone] Encounter Details Date Type Department Care Team (Late st Contact Info) Description 08/05/2024 Procedure Pass OR Admitting Dept - Virtual Department [address] [place] [address] Social History Tobacco Use Types Packs/Day Years [...] on filedocumented in this encounter Care Teams Jump Roll Operator Relationship Specialty Start Date End Date Reggie Burns MD [address] [place] [address] [place] [address] PCP - General 05/22/24 documented as of this encounter Additional Source Comments The information contained in this document represents components of the legal health record. It is not the complete legal health record.[facility]
--- OUTSIDE RECORDS SUMMARY | 2025-09-28 10:55 | XMS_ITS | Patient Health Record ---
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 Name Role Phone Grant (RETIRED) Reggie PEREZ Primary Care Provider Unavailable Jaya Costello Unavailable [phone] Reason For Referral No Information Medications Medication SIG (Take, Route, Fr equency, Duration) Notes Start Date End Date Status Omeprazole 20 MG TAKE 1 CAPSULE BY MO UTH EVERY MORNING; Duration: 30 Active Plan Of Treatment No Information Insurance Providers Payer Name Payer Address Payer Phone Subscriber Number Group Number Insured Name Patient Relationship to Insured Coverage Start Date Coverage End Date [facility] [address] [place] [address] [phone] [id number] RHONDA MOORE Self - patient is the insured
--- OUTSIDE RECORDS SUMMARY | 2025-09-28 10:55 | XMS_ITS | Clinical Summary ---
Author Organization [facility] Address [address] [place] [phone] Phone Care Team Providers Care Floor Space Allocator Name Role Phone Reggie Burns MD Primary Care Provider Allergies Active Allergy Reactions Criticality Noted Date Comments Cephalexin 07/29/2024 Cephalosporins 07/29/2024 Atorvastatin 06/04/2024 Can not lift arms Other 07/29/2024 Betalactams Penicillin 06/04/2024 Whunpnv-Ixj-Pfb Reductase Inhibitors 07/29/2024 Medications omeprazole (PRILOSEC) 20 [...] this topic Medical Devices Implanted Type Area Financial Processing Clerk Device Identifier Shelf Expiration Date Model / Serial / Lot Stent Implanted:Qty: 1 Stent Heart Insurance [place] BLUE REPLACEMENT AIM INSURANCE Advance Directives For more information, please contact: [phone] (9AM - 5PM [facility], Sunday-Sunday) * Full Code (Latest Code Status on File) Date Activated Date Inactivated Comments 08/05/2024 8:32 AM Question Answer Comments Code Status Confirmed With: Other (specify below ) Code Discussion Comments: periop Care Teams Floor Space Allocator Relationship Specialty Start Date End Date Reggie Burns MD [address] [place] [address] [place] [address] PCP - General 05/22/24 Additional Source Comments The information contained in this document represents components of the legal health record. It is not the complete legal health record.[facility]
== END 2025-09-28 10:20 | disposition home or self-care (01) ==
LOC: HO.HCS 09:34
PROVIDERS: PCP Family Medicine; Visit Provider Internal Medicine Cardiovascular Disease
DX: I25.10 Atherosclerotic heart disease of native coronary artery without angina pectoris (principal); I10 Essential (primary) hypertension
CPT/HCPCS: 93010; 99214

== ENCOUNTER → 2025-09-28 09:33 | Outpatient (BNVA) | payer BC, SELFPAY | PROVIDERS: PCP Family Medicine; Visit Provider Internal Medicine Cardiovascular Disease | DX: I25.10 Atherosclerotic heart disease of native coronary artery without angina pectoris (principal); I10 Essential (primary) hypertension | CPT/HCPCS: 93005 ==